=== PATIENT | female | born 1935 | race Caucasian/White ===

== ENCOUNTER → 2016-10-04 | Outpatient (CLI) | payer MEDICARE, OTHER ==
[2016-10-04 12:22] LABS: Blood Urea Nitrogen 35 mg/dL (7-17); Non-African American GFR(MDRD) 50 (>60 ml/min/1.73 sqM)
--- NOTE | 2016-10-04 13:31 | CT ---
EXAMINATION TYPE: CT chest w con DATE OF EXAM: 10/04/2016 1:19 PM COMPARISON: 03/30/2016 and 05/24/2015 HISTORY: Previous abnormal exam CT DLP: 1062 mGycm Automated exposure control for dose reduction was used. CONTRAST: CT scan of the chest is performed with IV Contrast, patient injected with 100 ml mL of Omnipaque 300. FINDINGS: LUNGS: Nodular density within the left upper lobe posteriorly is smaller in size and currently measur es 6 mm versus previous measurement of 9 mm. Focal Groundglass opacity left upper lobe is unchanged f rom 2.5 cm versus 2.5 cm previously however significantly improved from 05/24/2015. Spiculated density right lower lobe is essentially unchanged and measures 2.5 x 1.2 cm. This has progressed significantl y since the study from 05/24/2015. The lungs are otherwise clear. Hyperinflation compatible with COPD. Upper lobe emphysematous changes noted. MEDIASTINUM: There is left hilar adenopathy measuring 2 cm. Additional enlarged lymph node is identif ied within the AP window measures 1.4 cm. Direct comparison with prior study is difficult given lack of contrast on the previous examination. No pericardial effusion is seen. Thoracic aorta is of jeramy l caliber. The heart is not enlarged. UPPER ABDOMEN: There is evidence of cholelithiasis. Simple cysts within the left hepatic lobe are unc hanged. Thickening of the left adrenal gland persists. Small hiatal hernia is incidentally noted. Sco liosis of the thoracic spine with associated degenerative changes. OTHER: No additional significant abnormality is seen. IMPRESSION: 1. Spiculated mass right lower lobe has enlarged significantly when compared to 05/24/2015 however cherry ins stable when compared to 03/30/2016. 2. Left upper lobe mass has improved significantly when compared to 05/24/2015 however appears as an ar ea of focal groundglass infiltrate and is unchanged relative 03/30/2016. 3. Left apical nodule is slightly smaller in size. 4. Left hilar and AP window adenopathy.
== END | disposition home or self-care (01) ==
LOC: RADCTMAIN 11:43
PROVIDERS: ATTEND Internal Medicine
DX: R91.8 Other nonspecific abnormal finding of lung field (principal); R59.0 Localized enlarged lymph nodes
CPT/HCPCS: 82565; 84520; 71260; 36415; Q9967

== ENCOUNTER 2017-02-19 04:35 | Emergency (ER) | payer MEDICARE, OTHER ==
[2017-02-19] MEDS ORDERED: IPRATROPIUM-ALBUTEROL 3 ML NEB INHALATION STA (04:57)
[2017-02-19] MEDS ORDERED: predniSONE 20 MG TAB PO STA (04:57)
--- NOTE | 2017-02-19 05:03 | ED ---
SOB HPI - General Source: patient Mode of arrival: EMS Limitations: no limitations - History of Present Illness MD Complaint: shortness of breath, cough -: hour(s) Severity: moderate Consistency: constant Improves With: nothing Worsens With: nothing Known History Of: COPD Context: recent URI Associated Symptoms: denies other symptoms <Riley Zuniga - Last Filed: 02/19/17 04:57> <Rory Rodriguez - Last Filed: 02/19/17 09:10> - General Chief Complaint: Shortness of Breath Stated Complaint: SOB Time Seen by Provider: 02/19/17 04:37 - History of Present Illness Initial Comments: This patient is an 81-year-old woman who presents to be evaluated for feeling shortness of breath. She states that she had gone to bed with a little bit of a scratchy feeling in the throat. She woke up between 1 and 2:00 this morning with a feeling like she was congested in the nose and sinuses. She then also started feeling like her lungs were tight. She was having a little bit of wheezing. She states that she has a little bit of a nonproductive cough but that she always has a cough. Patient denies any pain or swelling in the legs the remainder the review of systems is negative. (Riley Zuniga) - Related Data Home Medications Medication Instructions Recorded Confirmed Albuterol Sulfate [Proair Hfa] 2 puff INHALATION RT-BID 03/29/16 02/19/17 Aspirin EC [Ecotrin Low Dose] 81 mg PO AC-LUNCH 03/29/16 02/19/17 Prasanna/D3/Mag11/Zinc/Spinner Continuous/Reece/Bor 1 tab PO AC-LUNCH 03/29/16 02/19/17 [Caltrate 600+D Plus Tablet] Magnesium Oxide [Mag-Ox] 400 mg PO AC-LUNCH 03/29/16 02/19/17 Multivitamins, Thera [Multivitamin 1 tab PO DAILY 03/29/16 02/19/17 (formulary)] Fish Oil/Dha/Epa [Fish Oil 1,200 1 cap PO DAILY 04/12/16 02/19/17 mg Fish Oil] Carvedilol [Coreg] 6.25 mg PO BID 02/19/17 02/19/17 Cetirizine HCl [Zyrtec] 10 mg PO DAILY 02/19/17 02/19/17 Ipratropium-Albuterol Nebulize 3 ml INHALATION RT-QID PRN 02/19/17 02/19/17 [Duoneb 0.5 mg-3 mg/3 ml Soln] Lisinopril [Zestril] 10 mg PO BID 02/19/17 02/19/17 Previous Rx's Medication Instructions Recorded Budesonide-Formot 160-4.5 Mcg 2 puff INHALATION RT-BID #1 inh 04/02/16 [Symbicort 160-4.5 Mcg Inhaler] Cephalexin [Keflex] 500 mg PO QID #40 cap 02/19/17 Allergies Allergy/AdvReac Type Severity Reaction Status Date / Time amoxicillin Allergy Nausea & Verified 02/19/17 08:07 Vomiting celecoxib [From Celebrex] Allergy Rash/Hives Verified 02/19/17 08:07 codeine Allergy Nausea & Verified 02/19/17 08:07 Vomiting Review of Systems ROS Other: All systems not noted in ROS Statement are negative. Constitutional: Denies: fever, chills ENT: Reports: throat pain, congestion. Denies: ear pain, epistaxis Respiratory: Reports: cough, dyspnea, wheezes. Denies: hemoptysis, stridor Cardiovascular: Denies: chest pain, palpitations, dyspnea on exertion, orthopnea , edema, syncope Gastrointestinal: Denies: abdominal pain, vomiting Genitourinary: Denies: dysuria, hematuria Musculoskeletal: Denies: back pain Skin: Denies: rash Neurological: Denies: headache, weakness, numbness <Riley Zuniga - Last Filed: 02/19/17 04:57> ROS Other: All systems not noted in ROS Statement are negative. <Rory Rodriguez - Last Filed: 02/19/17 09:10> ROS Statement: Those systems with pertinent positive or pertinent negative responses have been documented in the HPI. Past Medical History Past Medical History: COPD, Hypertension, Myocardial Infarction (ME), Pneumonia Additional Past Medical History / Comment(s): pneumonia x2 once was bacterial and pt was very ill- had to go to rehab after, was told she had a ME by her physician but unknown when, colon polyps, occasional rectal bleed, hemorrhoids, diverticulitis, thyroid nodules being monitored, generalized arthritis, occasional back pain, scoliosis, stress incontinence, fairly recent kidney infection, pt is very sensitive to narcotics and certain antibiotics cause her alot of GI problems. Last Myocardial Infarction Date:: unkn History of Any Multi-Drug Resistant Organisms: None Reported Past Surgical History: Joint Replacement Additional Past Surgical History / Comment(s): 2014 total rt knee arthroplasty, bilateral cataract removal, trabeculoplasty-laser sx for glaucoma bilaterally, D &C, Past Anesthesia/Blood Transfusion Reactions: No Reported Reaction Past Psychological History: No Psychological Hx Reported Additional Psychological History / Comment(s): Pt resides alone. She has a walker which she uses if she has items to transport-sets them on the seat. She is independent. She drives. Smoking Status: Former smoker Past Alcohol Use History: Rare Additional Past Alcohol Use History / Comment(s): Pt states she smoked from 1963 -1993 less than a ppd. Past Drug Use History: None Reported - Past Family History Father History Unknown: Yes Additional Family Medical History / Comment(s): Father when pt was 3 yrs old in a MVA. Mother Family Medical History: Renal Disease Additional Family Medical History / Comment(s): Mother had severe phlebitis. She when pt was 16 yrs. old from kidney failure. <Riley Zuniga - Last Filed: 02/19/17 04:57> General Exam Limitations: no limitations General appearance: alert, in no apparent distress Head exam: Present: atraumatic, normocephalic Eye exam: Present: normal appearance. Absent: scleral icterus, conjunctival injection Neck exam: Present: normal inspection Respiratory exam: Present: respiratory distress (Mild tachypnea), wheezes. Absent: rales, rhonchi, stridor, accessory muscle use, decreased breath sounds, prolonged expiratory Cardiovascular Exam: Present: regular rate, normal rhythm, normal heart sounds. Absent: systolic murmur, diastolic murmur, rubs, gallop GI/Abdominal exam: Present: soft. Absent: distended, tenderness, guarding, rebound Extremities exam: Present: normal inspection, normal capillary refill. Absent: pedal edema, calf tenderness Back exam: Present: normal inspection. Absent: CVA tenderness (R), CVA tenderness (L) Neurological exam: Present: alert Skin exam: Present: warm, dry, intact, normal color. Absent: rash <Riley Zuniga - Last Filed: 02/19/17 04:57> Medical Decision Making - EKG Data -: EKG Interpreted by Pa EKG shows normal: sinus rhythm, intervals (QRS duration is mildly prolonged at 124 ms, the other intervals are normal), QRS complexes (Nonspecific intraventricular block) Rate: normal (Rate 78 bpm) Interpretation: other (Possible old anteroseptal infarct.) <NadiaRiley - Last Filed: 02/19/17 04:57> - Lab Data Result diagrams: 02/19/17 04:45 02/19/17 04:45 - Radiology Data Radiology results: report reviewed (CT of the chest shows no evidence of pulmonary embolism. Chronic emphysematous changes and mild cardiomegaly.Mild to moderate interstitial edema. Persistent suspicious left hilar mass or adenopathy. Persistent increasing right lower lobe speculated nodule.), image reviewed (Two-view chest x-ray shows patchy densities bilateral lower lobes.) <Rory Rodriguez - Last Filed: 02/19/17 09:10> - Medical Decision Making Patient reevaluated and resting comfortably in bed. Patient states she is breathing much better and requests discharge home. Patient denies ever having discomfort in her chest and states the tightness was only the description of her breathing. Patient does not want to be admitted. Patient and family are updated on results including concerns regarding computed tomography scan. They state they do have a follow-up appointment with Dr. Davis next month however will attempt to have this sooner. They are advised of the importance of having this follow-up sooner. Also advised to follow-up with primary care physician in the next couple of days. Patient does request antibiotics for sinus congestion and sore throat. Specifically Keflex. Lungs are clear to auscultation. No pedal edema. (Rory Rodriguez) - Lab Data Lab Results 02/19/17 02/19/17 02/19/17 Range/Units 04:45 04:45 04:45 WBC 8.9 (3.8-10.6) k/uL RBC 4.40 (3.80-5.40) m/uL Hgb 14.0 (11.4-16.0) gm/dL Hct 42.7 (34.0-46.0) % MCV 97.1 (80.0-100.0) fL MCH 31.9 (25.0-35.0) pg MCHC 32.8 (31.0-37.0) g/dL RDW 13.6 (11.5-15.5) % Plt Count 198 (150-450) k/uL Neutrophils % 75 % Lymphocytes % 15 % Monocytes % 5 % Eosinophils % 2 % Basophils % 1 % Neutrophils # 6.7 (1.3-7.7) k/uL Lymphocytes # 1.3 (1.0-4.8) k/uL Monocytes # 0.5 (0-1.0) k/uL Eosinophils # 0.2 (0-0.7) k/uL Basophils # 0.1 (0-0.2) k/uL PT 10.0 (9.0-12.0) sec INR 1.0 (<1.1) APTT 23.9 (22.0-30.0) sec D-Dimer 1.99 H (<0.60) mg/L FEU Sodium 145 (137-145) mmol/L Potassium 4.1 (3.5-5.1) mmol/L Chloride 105 (98-107) mmol/L Carbon Dioxide 28 (22-30) mmol/L Anion Gap 12 mmol/L BUN 28 H (7-17) mg/dL Creatinine 1.02 (0.52-1.04) mg/dL Est GFR (MDRD) Af Amer >60 (>60 ml/min/1.73 sqM) Est GFR (MDRD) Non-Af 52 (>60 ml/min/1.73 sqM) Glucose 117 H (74-99) mg/dL Calcium 9.6 (8.4-10.2) mg/dL Total Bilirubin 0.7 (0.2-1.3) mg/dL AST 25 (14-36) U/L ALT 28 (9-52) U/L Alkaline Phosphatase 106 (38-126) U/L Troponin I (0.000-0.034) ng/mL NT-Pro-B Natriuret Pep pg/mL Total Protein 7.0 (6.3-8.2) g/dL Albumin 4.3 (3.5-5.0) g/dL Group A Strep Rapid (Negative) 02/19/17 02/19/17 02/19/17 Range/Units 04:45 04:45 06:30 WBC (3.8-10.6) k/uL RBC (3.80-5.40) m/uL Hgb (11.4-16.0) gm/dL Hct (34.0-46.0) % MCV (80.0-100.0) fL MCH (25.0-35.0) pg MCHC (31.0-37.0) g/dL RDW (11.5-15.5) % Plt Count (150-450) k/uL Neutrophils % % Lymphocytes % % Monocytes % % Eosinophils % % Basophils % % Neutrophils # (1.3-7.7) k/uL Lymphocytes # (1.0-4.8) k/uL Monocytes # (0-1.0) k/uL Eosinophils # (0-0.7) k/uL Basophils # (0-0.2) k/uL PT (9.0-12.0) sec INR (<1.1) APTT (22.0-30.0) sec D-Dimer (<0.60) mg/L FEU Sodium (137-145) mmol/L Potassium (3.5-5.1) mmol/L Chloride (98-107) mmol/L Carbon Dioxide (22-30) mmol/L Anion Gap mmol/L BUN (7-17) mg/dL Creatinine (0.52-1.04) mg/dL Est GFR (MDRD) Af Amer (>60 ml/min/1.73 sqM) Est GFR (MDRD) Non-Af (>60 ml/min/1.73 sqM) Glucose (74-99) mg/dL Calcium (8.4-10.2) mg/dL Total Bilirubin (0.2-1.3) mg/dL AST (14-36) U/L ALT (9-52) U/L Alkaline Phosphatase (38-126) U/L Troponin I <0.012 (0.000-0.034) ng/mL NT-Pro-B Natriuret Pep 812 pg/mL Total Protein (6.3-8.2) g/dL Albumin (3.5-5.0) g/dL Group A Strep Rapid Negative (Negative) Disposition <Riley Zuniga - Last Filed: 02/19/17 04:57> <Rory Rodriguez - Last Filed: 02/19/17 09:10> Clinical Impression: COPD exacerbation Disposition: HOME SELF-CARE Condition: Stable Instructions: COPD (Chronic Obstructive Pulmonary Disease) (ED), Sinusitis (ED) Additional Instructions: Please follow-up with your primary care physician and Dr. Boss this week. Please have Dr. Boss review computed tomography scan done today. Return for difficulty breathing, chest discomfort, worsening symptoms or any other concerns or fevers. Prescriptions: Cephalexin [Keflex] 500 mg PO QID #40 cap Referrals: Myra Arreaga MD [Primary Care Provider] - 1-2 days Yanique Boss MD [STAFF PHYSICIAN] - 1-2 days
[2017-02-19 05:15] LABS: Basophils # (A) 0.1 k/uL (0-0.2); Basophils % (A) 1 %; CHCM 33.1; Eosinophils # (A) 0.2 k/uL (0-0.7); Eosinophils % (A) 2 %; HCT 42.7 % (34.0-46.0); Luc % (Auto) 2; Lymphocytes # (A) 1.3 k/uL (1.0-4.8); Lymphocytes % (A) 15 %; MCH 31.9 pg (25.0-35.0); MCHC 32.8 g/dL (31.0-37.0); MCV 97.1 fL (80.0-100.0); Mean Platelet Volume 6.7; Monocytes # (A) 0.5 k/uL (0-1.0); Monocytes % (A) 5 %; Neutrophils # (A) 6.7 k/uL (1.3-7.7); Neutrophils % (A) 75 %; RDW 13.6 % (11.5-15.5); WBC 8.9 k/uL (3.8-10.6); WBC (Perox) 9.03
[2017-02-19 05:33] LABS: ALT 28 U/L (9-52); AST 25 U/L (14-36); Alkaline Phosphatase 106 U/L (38-126); Anion Gap 12 mmol/L; Blood Urea Nitrogen 28 mg/dL (7-17); Calcium 9.6 mg/dL (8.4-10.2); Carbon Dioxide 28 mmol/L (22-30); Chloride 105 mmol/L (98-107); Glucose 117 mg/dL (74-99); Non-African American GFR(MDRD) 52 (>60 ml/min/1.73 sqM); Potassium 4.1 mmol/L (3.5-5.1); Sodium 145 mmol/L (137-145); Total Bilirubin 0.7 mg/dL (0.2-1.3)
[2017-02-19 05:36] LABS: Partial Thromboplastin Time 23.9 sec (22.0-30.0)
--- NOTE | 2017-02-19 06:22 | XR ---
PROCEDURE: FILM CXR 2 VIEWS HISTORY: 81-year-old female with difficulty breathing. COMPARISON: Chest radiograph 04/12/2016 TECHNIQUE: Frontal and lateral views of the chest were obtained. FINDINGS: Evaluation is limited by motion degradation. Cardiomediastinal silhouette is stable. Patchy densities in the bilateral lower lobes, may be due to motion artifact or pneumonia in the appropriate clinical setting. No evidence of pleural effusion. Bones are osteopenic. IMPRESSION: Patchy densities in the bilateral lower lobes, may be due to motion artifact or pneumonia in the appropriate clinical setting.
[2017-02-19] MEDS ORDERED: RX INFO: IV CONTRAST WAS GIVEN 1 EACH MISC MISCELLANE PRN (06:41)
[2017-02-19 07:35] VITALS: RESP 18
--- NOTE | 2017-02-19 08:03 | CT ---
EXAMINATION TYPE: CT chest angio for PE DATE OF EXAM: 02/19/2017 COMPARISON: CT chest October 04, 2016. Older CT exams back to May 24, 2015. HISTORY: SOB and chest pain, elevated d dimer CT DLP: 517 mGycm. Automated Exposure Control for Dose Reduction was Utilized. CONTRAST: CTA scan of the thorax is performed with IV Contrast, patient injected with 65 mL of Visipaque 320, p ulmonary embolism protocol. MIP Images are created on CT scanner and reviewed. FINDINGS: LUNGS: Moderate underlying emphysematous change is present bilaterally. There is mild biapical scarri ng. There is persistent scarlike opacity posterior left upper lobe measuring 13 x 6 mm on axial image 36 fairly stable from prior studies back through 2014 presumed benign. There is increasing reticulat ion on current study suggesting new mild edema. Inferior left upper lobe scarlike opacity on axial im age 67 measures approximately 2.7 x 1.7 cm on current study slightly more prominent versus most recen t study, acute infectious process at this level cannot be excluded. There is increasing left hilar ma sslike consolidation difficult to accurately measure due to close proximity to left pulmonary artery, this currently measures 2.2 x 1.8 cm on axial image 57 and could reflect left hilar adenopathy. Romel tional left infrahilar masslike consolidation is suspicious measuring 1.6 x 1.1 cm on axial image 70. There is dependent atelectasis in the left lung base. There is additional linear scarring and/or ate lectasis in the left lung base redemonstrated. There is continued progression in size in spiculated nodule right lower lobe measuring 2.7 x 1.8 cm o n axial image 92. There is some subcentimeter nodular scarring medially in the right middle lobe near diaphragm stable. No large pleural effusion or pneumothorax is seen bilaterally. MEDIASTINUM: There is satisfactory enhancement of the pulmonary artery and its branches, there is no CT evidence for pulmonary embolism. There are no additional greater than 1 cm hilar or mediastinal l ymph nodes. There are prominent subcentimeter prevascular, AP window, right hilar, and subcarinal lym ph nodes Heart size is mildly enlarged with mild left ventricular dilatation. No significant pericard ial effusion is seen. There is moderate atherosclerotic change in ectatic thoracic aorta. There is pr obable greater than 1 cm hypodense thyroid nodule lower pole level right thyroid seen best coronal im age 52. Small hiatal hernia is redemonstrated. OTHER: A 5 cm low dense lesion probable simple hepatic cyst lateral segment left hepatic lobe is stab le. There is additional subcentimeter hypodense lesion near this on axial image 110 that is stable fr om prior exams. Underlying dextroconvex scoliosis is redemonstrated. IMPRESSION: 1. No CT evidence for pulmonary embolism. 2. Background of moderate chronic emphysematous change and mild cardiomegaly with new mild to moderat e interstitial edema, consider CHF exacerbation, clinical correlation advised. 3. Persistent suspicious left hilar mass or adenopathy. Persistent increasing right lower lobe spicul ated nodule. Malignancy needs to BE excluded. Consider PET/CT or bronchoscopy follow-up.
[2017-02-19 10:21] VITALS: BP 133/60; PULSE 85; TEMP 97.4
== END 2017-02-19 10:23 | disposition home or self-care (01) ==
LOC: EC 04:35
DX: J44.1 Chronic obstructive pulmonary disease with (acute) exacerbation (principal); I10 Essential (primary) hypertension; I25.2 Old myocardial infarction; Z87.01 Personal history of pneumonia (recurrent); Z87.891 Personal history of nicotine dependence; Z79.82 Long term (current) use of aspirin; Z79.899 Other long term (current) drug therapy; Z88.0 Allergy status to penicillin; Z88.5 Allergy status to narcotic agent; Z88.6 Allergy status to analgesic agent
CPT/HCPCS: 99285; 36415; 94640; 93005; 85379; 83880; 80053; 84484; 85025; 85610; 85730; 87081; 87430; 71020; 71275; Q9967; J7512

== ENCOUNTER → 2017-03-02 | Outpatient (CLI) | payer MEDICARE, OTHER ==
--- NOTE | 2017-03-03 10:52 | PE ---
EXAMINATION TYPE: PET CT fusion skull to thigh DATE OF EXAM: 03/02/2017 COMPARISON: Chest CT 02/19/2017 Prior PET/CT: None HISTORY: Lung mass TECHNIQUE: Following the intravenous administration of 14.11 mCi of F-18 FDG, whole body images are performed from the skull base to the midthigh. Images are reviewed on the computer in the coronal, a xial, and sagittal planes. Reconstructed rotating images are created on independent workstation and reviewed on the computer. A localization and attenuation correction CT is performed in conjunction with the PET scan. DLP: 397.1 mGycm SCAN: Initial Blood glucose: 88 mg/dL Average Mediastinum SUV: 2.13 Average Liver SUV: 2.06 FINDINGS: NECK: No abnormal uptake. THORAX: There is hyperintensity within the left hilar region with an SUV value of 10.95. A subtle lef t infrahilar area of uptake measures 2.67. PET image 97 there is mild uptake in the periphery of the right lower lung base measuring 2.37. Image 113 ABDOMEN: No abnormal uptake PELVIS: No abnormal uptake. There is some slight uptake within the gluteal muscles. OSSEOUS STRUCTURES: No abnormal uptake LOCALIZATION CT: The ascending thoracic aorta at the level the main pulmonary artery is 3.8 cm. The m ain pulmonary artery the bifurcation is 2.5 cm. There is soft tissue fullness adjacent to the left ma in pulmonary artery at the level of the abnormal uptake.. The more inferior infrahilar uptake region appears more normal. There is density on the lung windows in the periphery of the right lung base ant eriorly of abnormal uptake. Some pneumonitis changes within the periphery of the left midlung this ar ea has a normal SUV value less than 1. Large cysts in the liver ". 0.9 cm hypodensities in the graphics edit technician ior inferior left kidney. COMPARISON: Findings at the localization and PET/CT correspond to findings on the chest CTA. IMPRESSION: 1. Increased uptake within the soft tissue densities in the left hilar and infrahilar regions as well as the density within the right lung base. These are in the range of neoplastic processes. Correlate for primary or metastatic lesions.
== END | disposition home or self-care (01) ==
LOC: RADPETMAIN 07:45
PROVIDERS: ATTEND Internal Medicine
DX: R94.2 Abnormal results of pulmonary function studies (principal)
CPT/HCPCS: 78815; A9552

== ENCOUNTER 2017-03-13 11:00 | Day surgery (SDC) | payer MEDICARE, OTHER ==
[2017-03-08 11:15] VITALS: BMI 28.3
[~2017-03-13 11:00] MED LIST: ALBUTEROL NEB (CONC) 2.5 MG/0.5 ML INHALATION ONE; DEXAMETHASONE SOD PHOSPHATE 10 MG/ML 1 ML VIAL IV ONE; HYDROmorphone 1 MG/ML 1 ML SYRINGE IVP PRN; LACTATED RINGERS 1,000 ML IV ONE; LIDOCAINE 1% 20 ML VIAL (10MG/ML) FOR IV START INTRADERMA PRN; LIDOCAINE 2% (PF) 20 MG/ML 10ML INHALATION ONE; MIDAZOLAM 2 MG/2 ML VIAL IV PRN; ONDANSETRON 4 MG/2 ML VIAL IVP ONE; Pre Op ABX Message 1 EACH MISC MISCELLANE ONE; SCOPOLAMINE 1.5MG/72HR PATCH TRANSDERM ONE
--- NOTE | 2017-03-13 12:51 | CT ---
EXAMINATION TYPE: CT Chest wo con Veran Protocol DATE OF EXAM: 03/13/2017 COMPARISON: NONE HISTORY: Veran chest for navagational bronchoscopy CT DLP: [address] of the chest was performed utilizing Veran chest for navagational bronch. The lack of contrast limits evaluation of the vascular, mediastinal and parenchymal structures includ ing the upper abdomen. LUNGS: There is a spiculated mass at the right lower lobe measuring 3.0 x 1.8 cm. There is additional groundglass area of attenuation within the left lower lobe measuring 2.1 cm in greatest dimension. P ost inflammatory changes left upper lobe posteriorly. There is hyperinflation compatible with COPD. U pper lobe emphysematous changes noted. MEDIASTINUM/BEN: Atheromatous and ectatic change of the thoracic aorta without aneurysm. The heart i s not enlarged. No evidence for mediastinal mass. No lymph nodes greater than 1cm. UPPER ABDOMEN: Large hepatic cyst left hepatic lobe. OTHER: Scoliotic curvature with degenerative change thoracic spine. IMPRESSION: 1. Right lower lobe mass felt to reflect malignancy until proven otherwise. 2. Scattered areas of groundglass density may be inflammatory\postinflammatory in nature.
[2017-03-13] MEDS ORDERED: ePHEDrine 50 MG/ML 1 ML AMP ONE (13:35)
[2017-03-13] MEDS ORDERED: ROCURONIUM BROMIDE 10 MG/ML 10 ML VIAL IV ONE (13:35)
[2017-03-13] MEDS ORDERED: MIDAZOLAM 2 MG/2 ML VIAL ONE (13:35)
[2017-03-13] MEDS ORDERED: SUCCINYLCHOLINE CHLORIDE 100 MG/5 ML SYR IV ONE (13:35)
[2017-03-13] MEDS ORDERED: PROPOFOL 10 MG/ML 20 ML VIAL IV ONE (13:35)
[2017-03-13] MEDS ORDERED: LIDOCAINE 1% INJ 10MG/ML (20 ML MDV) ONE (13:35)
[2017-03-13] MEDS ORDERED: NEOSTIGMINE 1 MG/ML 10 ML VIAL ONE (13:35)
[2017-03-13] MEDS ORDERED: GLYCOPYRROLATE 0.2 MG/ML 2 ML VIAL ONE (13:35)
[2017-03-13] MEDS ORDERED: LACTATED RINGERS 1,000 ML IV ONE (14:15)
--- NOTE | 2017-03-13 14:21 | P.PCN ---
Date of Procedure: 03/13/17 Preoperative Diagnosis: Right lower lobe mass Postoperative Diagnosis: Right lower lobe mass Procedure(s) Performed: Bronchoscopy with navigation guidance, transbronchial biopsy, transbronchial needle aspirate, transbronchial brushings Implants: Anesthesia: TAYLERA Surgeon: Darell Rodríguez Estimated Blood Loss (ml): 0 Pathology: other Condition: stable Disposition: same day Indications for Procedure: Operative Findings: This is an 81-year-old female patient with a right lower lobe mass, coming in for a medication bronchoscopy and biopsy. Preoperatively, a low-dose same-day computed tomography scan was done for planning purposes. The patient had the appropriate V pads applied to the chest. The CAT of the chest was uploaded to our planning station and the target lesion of interest was identified and it was marked and the navigational planning was done and was exported into a ESBL and then uploaded into the main system. Following that the patient was brought into the operating room and the patient was intubated and placed on a mechanical ventilator and the induction and intubation process was done by anesthesia/BENEFIT AUTHORIZER. Following that, and after was tested orotracheal tube and the flexible bronchoscope was inserted to the orotracheal tube and airway section was done. Instructed airways occluded distal trachea, back and mainstem bronchi , right upper lobe bronchus regular lobe bronchus right lower lobe bronchus left upper lobe bronchus and left lower lobe bronchus along with history segments and subsegments. All of these airways were patent and within normal limits. Following that the bronchoscope was brought into the main abimael where the the appropriate calibration was done with the navigational system. Another calibration was done at the level of the secondary abimael and the right upper lobe. Following that, using the navigational 5 through system, the bronchoscope was directed to the right lower lobe anterior segment and under navigational guidance transbuccal baths of the right lower lobe mass was done. Multiple chest bronchial biopsies were obtained without any complications the total amount of bleeding was less than 5 ML's. Following that, and the bronchial brushings of the right lower lobe mass was done utilizing navigational guidance. At that of the procedure transbronchial needle aspirate was done using a 22-gauge histology needle again using the same navigational guidance. No bedside complications. Bronchoscope was removed. The patient was left to anesthesia for weaning and extubation. The patient be transferred recovery room once awake and a chest x-ray will be done to rule out any pneumothorax. The patient will be discharged home if she remains stable. Description of Procedure:
--- NOTE | 2017-03-13 15:46 | XR ---
EXAMINATION TYPE: XR chest 1V portable DATE OF EXAM: 03/13/2017 HISTORY: rule out pneumothorax. REFERENCE: Previous study dated 02/19/2017. FINDINGS: There is a marked dextroscoliosis. The heart is mildly enlarged. There is worsening right b asilar opacity likely representing combination of pleural fluid and consolidation. The left lung appe ars clear. I do not see evidence of pneumothorax. IMPRESSION: 1. SEVERE SCOLIOSIS. 2. MILD CARDIOMEGALY. 3. WORSENING RIGHT BASILAR OPACITY, LIKELY A COMBINATION OF FLUID AND AIRSPACE DISEASE.
[2017-03-13] MEDS ORDERED: ALBUTEROL NEBULIZED 2.5 MG/3 ML INHALATION STA (15:50)
[2017-03-13] MEDS ORDERED: IPRATROPIUM-ALBUTEROL 3 ML NEB INHALATION PRN (17:47)
[2017-03-13] MEDS: LACTATED RINGERS 1,000 ML IV SCH (19:00)
[2017-03-13] MEDS ORDERED: SYMBICORT 160-4.5 MCG INHALER INHALATION SCH (20:00)
[2017-03-13] MEDS: LISINOPRIL 10 MG TAB PO SCH (20:31)
[2017-03-13] MEDS: CARVEDILOL 6.25 MG TAB PO SCH (20:31)
[2017-03-13] MEDS: ALBUTEROL NEBULIZED 2.5 MG/3 ML INHALATION SCH (20:42)
[2017-03-13] MEDS ORDERED: MONTELUKAST 10 MG TAB PO SCH (21:00)
[2017-03-14] MEDS: LACTATED RINGERS 1,000 ML IV SCH (06:37)
--- NOTE | 2017-03-14 07:28 | XR ---
EXAMINATION TYPE: XR chest 2V DATE OF EXAM: 03/14/2017 COMPARISON: 03/13/2017 INDICATION: Post bronchoscopy, shortness of breath TECHNIQUE: Frontal and lateral views of the chest are obtained. FINDINGS: The heart size is normal. The pulmonary vasculature is normal. There is mild infiltrate at the right base. This has improved. Scoliosis within the thoracic spine. IMPRESSION: 1. Improving right lower lobe infiltrate. 2. No pneumothorax
[2017-03-14] MEDS: ALBUTEROL NEBULIZED 2.5 MG/3 ML INHALATION SCH (08:01)
[2017-03-14] MEDS: CARVEDILOL 6.25 MG TAB PO SCH (08:31)
[2017-03-14] MEDS: LISINOPRIL 10 MG TAB PO SCH (08:31)
[2017-03-14 08:38] VITALS: BP 142/73; PULSE 67; RESP 18; TEMP 97.5
[2017-03-14 08:50] LABS: Basophils % (A) 0 %; CH 31.7; Eosinophils % (A) 0 %; HCT 35.4 % (34.0-46.0); HDW 2.26; HGB 11.7 gm/dL (11.4-16.0); Luc # (Auto) 0.05; Luc % (Auto) 1; Lymphocytes # (A) 0.9 k/uL (1.0-4.8); Lymphocytes % (A) 12 %; MCH 31.7 pg (25.0-35.0); MCHC 32.9 g/dL (31.0-37.0); MCV 96.4 fL (80.0-100.0); Mean Platelet Volume 8.7; Monocytes # (A) 0.2 k/uL (0-1.0); Monocytes % (A) 4 %; Neutrophils # (A) 5.8 k/uL (1.3-7.7); Neutrophils % (A) 83 %; RBC 3.67 m/uL (3.80-5.40); RDW 13.4 % (11.5-15.5)
[2017-03-14] MEDS ORDERED: LORATADINE 10 MG TAB PO SCH (09:00)
[2017-03-14 09:06] LABS: Anion Gap 10 mmol/L; Blood Urea Nitrogen 28 mg/dL (7-17); Calcium 9.1 mg/dL (8.4-10.2); Carbon Dioxide 26 mmol/L (22-30); Chloride 103 mmol/L (98-107); Glucose 163 mg/dL (74-99); Non-African American GFR(MDRD) 50 (>60 ml/min/1.73 sqM); Potassium 4.2 mmol/L (3.5-5.1); Sodium 139 mmol/L (137-145)
[2017-03-14] MEDS ORDERED: ACETAMINOPHEN TAB 500 MG TAB PO STA (10:03)
--- NOTE | 2017-03-14 10:21 | P.HPPUL ---
History of Present Illness H&P Date: 03/14/17 Chief Complaint: chest pain and hypoxemia this is a 80-year-old female followe up by Dr Boss for symptoms of COPD, and for a lung nodule. Patient used to see Dr. Chanel in the past for her COPD and for the lung nodule. During her last admission to the hospital on 03/30/2016, patient had multiple medical problems including COPD, atrial fibrillation and RVR, essential hypertension, coronary artery disease. Her CT of the chest in the hospital was suspicious for left lung nodule which was apparently present in 2014, the nodule was noted to be smaller, but there was still a concern about nodularity in the lungs, and we recommended a repeat CT of the chest in 6 months. Apparently patient had extensive workup in the past for her nodule in the left lung, she even underwent bronchoscopies and biopsies in [place], and all were nondiagnostic. In the meantime the patient was coping with her lung disease rather well. Remained on Symbicort, albuterol and Atrovent updrafts, and now she is on Zyrtec which seems to be working well for her nasal drip and cough. Her FEV1 was 41% consistent with severe COPD. Patient was in the office on 02/22/2017, she was recently seen in the ER with symptoms of cough, shortness of breath, and she was placed on antibiotics. However the CT of the chest that was done while in the ER showed increase in the size of the right lower lobe nodule which is above the right hemidiaphragm, and the chronic changes are basically about the same including the changes on the left lung and left midlung nodularity, also preaortic lymphadenopathy noted in the mediastinal area. Based on this, a PET scan was done on 03/03/2017 that showed increased uptake within the soft tissue density in the left hilar and infrahilar region and there was also mild uptake in the peripheral the right lung base measuring 2.3 SUV. There was essentially a suspicion for an underlying neoplastic process. At that point the recommendation was to do a litigation bronchoscopy and obtain a biopsy of the right lower lobe. I performed a navigation bronchoscopy yesterday and operating room under general anesthesia. Transbronchial biopsies, brushings and has bronchial needle aspirate of the right lower lobe lesion was done. The patient's overall procedure intraoperatively was non-complicated. Total amount of bleeding was less than 5 ML. The patient was weaned off and she was extubated. In the recovery room she was slow to wake up from sedation. She continued to be lethargic. She was also complaining of pain over the right posterior chest area under her shoulder blade. The pain was very much reproducible upon touching the area. However at times with deep breathing she was complaining of also of some pain. The chest x-ray showed some limited consolidation of the right lung base probably post bronchoscopy changes and postbiopsy changes. There was no evidence of pneumothorax. The patient typically uses 2-3 L of oxygen nasal cannula for COPD. However she did not have her portable oxygen with her. Her pulse ox was ranging between 88-92% and at times she was dropping and desaturating while on room air. Based on that, she was uncomfortable going home without oxygen lung that she did not have any portable tanks and she was still hurting and she was quite lethargic on the sedation. I made a decision to keep her under observation for 23 hours and discharge her first thing in the morning if her condition stabilizes. The patient had a follow-up chest x-ray on 03/14/2017 which is showing improvement in aeration of the right lung base. There is no evidence of pneumothorax . The patient remains on 2 L of oxygen nasal cannula. No other new complaints. Note that the patient has thoracic kyphoscoliosis and her posterior chest is asymmetrical and it's somewhat protruding and is possible that she had increased pressure while they down flat during the procedure and operating room. This could've also contributed to the skeletal pain that she is experiencing in the back. Blood work essentially negative. The biopsy results are not out yet. We'll continue to follow. For the most part she is doing better. She is requiring Tylenol for pain control. She'll be discharged home today. Review of Systems All systems: negative Constitutional: Denies chills, Denies fever Eyes: denies blurred vision, denies pain Ears, nose, mouth and throat: Denies headache, Denies sore throat Cardiovascular: Denies chest pain, Denies shortness of breath Respiratory: Denies cough Gastrointestinal: Denies abdominal pain, Denies diarrhea, Denies nausea, Denies vomiting Genitourinary: Denies dysuria, Denies hematuria Musculoskeletal: Denies myalgias Integumentary: Denies pruritus, Denies rash Neurological: Denies numbness, Denies weakness Psychiatric: Denies anxiety, Denies depression Endocrine: Denies fatigue, Denies weight change Past Medical History Past Medical History: COPD, Hypertension, Myocardial Infarction (LA), Osteoarthritis (OA), Pneumonia Additional Past Medical History / Comment(s): COPD and lung mass (RLL) , previous pneumonia x2 once was bacterial, hemorrhoids, diverticulosis/ diverticulitis, thyroid nodules, scoliosis, oxygen at night -2L, gallstone, hx ulcers, urinary leakage Last Myocardial Infarction Date:: unknown History of Any Multi-Drug Resistant Organisms: None Reported Past Surgical History: Breast Surgery, Joint Replacement Additional Past Surgical History / Comment(s): total rt knee arthroplasty, bilateral cataract removal,laser sx for glaucoma bilaterally, D&C, rt breast biopsy/lumpectomy, Past Anesthesia/Blood Transfusion Reactions: Motion Sickness Additional Past Anesthesia/Blood Transfusion Reaction / Comment(s): "Does not take much anesthesia" hard time waking up, Smoking Status: Former smoker - Past Family History Father History Unknown: Yes Additional Family Medical History / Comment(s): Father when pt was 3 yrs old in a MVA. Mother Family Medical History: Deep Vein Thrombosis (DVT) Additional Family Medical History / Comment(s): Mother had severe phlebitis. She when pt was 16 yrs. old from kidney failure. Daughter(s) Family Medical History: Cancer Medications and Allergies Home Medications Medication Instructions Recorded Confirmed Type Albuterol Sulfate [Proair Hfa] 2 puff INHALATION BID 03/29/16 03/13/17 History Aspirin EC [Ecotrin Low Dose] 81 mg PO AC-LUNCH 03/29/16 03/13/17 History Prasanna/D3/Mag11/Zinc/Sprayer Machine/Reece/Bor 1 tab PO AC-LUNCH 03/29/16 03/13/17 History [Caltrate 600+D Plus Tablet] Magnesium Oxide [Mag-Ox] 400 mg PO AC-LUNCH 03/29/16 03/13/17 History Multivitamins, Thera [Multivitamin 1 tab PO DAILY 03/29/16 03/13/17 History (formulary)] Fish Oil/Dha/Epa [Fish Oil 1,200 1 cap PO DAILY 04/12/16 03/13/17 History mg Fish Oil] Carvedilol [Coreg] 6.25 mg PO BID 02/19/17 03/13/17 History Cetirizine HCl [Zyrtec] 10 mg PO DAILY 02/19/17 03/13/17 History Ipratropium-Albuterol Nebulize 3 ml INHALATION QID PRN 02/19/17 03/13/17 History [Duoneb 0.5 mg-3 mg/3 ml Soln] Lisinopril [Zestril] 10 mg PO BID 02/19/17 03/13/17 History Budesonide-Formot 160-4.5 Mcg 2 puff INHALATION BID 03/08/17 03/13/17 History [Symbicort 160-4.5 Mcg Inhaler] Montelukast [Singulair] 10 mg PO HS 03/08/17 03/13/17 History Allergies Allergy/AdvReac Type Severity Reaction Status Date / Time amoxicillin Allergy Nausea & Verified 03/13/17 11:38 Vomiting celecoxib [From Celebrex] Allergy Rash/Hives Verified 03/13/17 11:38 codeine Allergy Nausea & Verified 03/13/17 11:38 Vomiting antibiotics AdvReac Severe Vomiting Uncoded 03/13/17 11:38 Physical Examination Vital signs: Vital Signs Temp Pulse Resp BP Pulse Ox 98.2 F 83 18 189/92 93 L 03/13/17 11:39 03/13/17 11:39 03/13/17 11:39 03/13/17 11:39 03/13/17 11:39 Vital Signs Comment(s): The patient appeared well nourished and normally developed. Vital signs as documented. Head exam is unremarkable. No scleral icterus or corneal arcus noted. Neck is without jugular venous distension, thyromegaly, or carotid bruits. Carotid upstrokes are brisk bilaterally. Lungs are diminished in the lung bases bilaterally. Few scattered external wheezes. Few crackles in lung base. The thoracic spine is kyphoscoliotic and asymmetrical upon inspection with some evidence of dextroscoliosis. Cardiac exam reveals the PMI to be normally sized and situated. Rhythm is regular. First and second heart sounds normal. No murmurs, rubs or gallops. Abdominal exam reveals normal bowel sounds , no masses, no organomegaly and no aortic enlargement. Extremities are nonedematous and both femoral and pedal pulses are normal. Results - Laboratory Findings CBC and BMP: 03/14/17 08:33 03/14/17 08:33 Abnormal lab findings: Abnormal Labs 03/14/17 03/14/17 08:33 08:33 RBC 3.67 L Lymphocytes # 0.9 L BUN 28 H Creatinine 1.06 H Glucose 163 H - Diagnostic Findings Chest x-ray: image reviewed Assessment and Plan Plan: Assessment 1 right lower lobe spiculated lesion , suspicious for malignancy. Status post navigation bronchoscopy with transbronchial biopsies and brushings and needle aspirate 2 post bronchoscopy chest wall pain. Could be related to her positioning intraoperatively as the patient has asymmetric chest related to Dextroscoliosis of the thoracic spine. In addition the biopsy itself could've caused some pleuritic chest pain on the right. Chest x-ray shows no evidence of any pneumothorax 2. There is some limited consolidation of the right lower lobe which is improving. Very unlikely that we are dealing with a pneumonia situation. 3 Dextroscoliosis of the thoracic spine 4 advanced COPD with an FEV1 of 40% of predicted 5. Hypertension 6 degenerative arthritis 7 urinary incontinence 8 diverticulosis/diverticulitis 9 paroxysmal atrial fibrillation current rhythm is sinus Plan Patient is stable for now. We'll arrange for her to go home with a portable oxygen at 2 L/m nasal cannula. 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 Resume outpatient bronchodilators. Tylenol for pain control. We'll follow. The patient is cleared to discharge as the patient is stable and the chest x-ray findings are stable also. We'll contact the patient once the results of the biopsies are established.
--- NOTE | 2017-03-14 10:27 | P.DS ---
Providers Date of admission: 03/13/2017 Expected date of discharge: 03/14/17 Attending physician: Darell Rodríguez Consults: none Primary care physician: Myra Arreaga [place] [facility] Course: This 81-year-old female patient had a specific related right lower lobe lesion for which she was brought into the hospital to undergo a navigational bronchoscopy under general anesthesia. The procedure was done without any significant intraoperative issues or complications. Postop, the patient was slow to recover from anesthesia. She continued to be sleepy for prolonged period of time and she claims that this is typical for her as she allegedly does not wake up from anesthesia quickly. She also experienced pain over the right posterior chest area behind her shoulder blades. I think this is a combination of her having scoliosis and having some excess pressure due to positioning and operating room. She also experienced some pleuritic chest discomfort which probably is related to the biopsy itself. In any rate, 2 chest x-rays were done on 03/13/2017 and 03/14/2017 and both showed no evidence of any pneumothorax. There was no collapsed lung. The med consolidation of the right lower lobe was seen postbiopsy and this was improving. The patient is on home O2 at 2 L. She did not have a portable oxygen tanks with her. Her pulse ox was ranging between 87-92% on room air. Based on that I kept her overnight and she remained stable. She was given Tylenol for pain control. Ultimately she continued to be stable and the patient was discharged on 2016 on oxygen at 2 L/m nasal cannula. She will resume her home respiratory medication. He'll take Tylenol for pain control. She'll follow-up with pulmonary in the office to discuss the results. Pertinent Studies: Chest x-ray on 03/13 and 03/14/2017 Procedures: Medication bronchoscopy, transbronchial biopsy, brushings, transbronchial needle aspirate Patient Condition at Discharge: Good Plan - Discharge Summary New Discharge Prescriptions: No Action Multivitamins, Thera [Multivitamin (formulary)] 1 tab PO DAILY Prasanna/D3/Mag11/Zinc/Nurse Tech/Reece/Bor [Caltrate 600+D Plus Tablet] 1 tab PO AC-LUNCH Aspirin EC [Ecotrin Low Dose] 81 mg PO AC-LUNCH Albuterol Sulfate [Proair Hfa] 2 puff INHALATION BID Magnesium Oxide [Mag-Ox] 400 mg PO AC-LUNCH Fish Oil/Dha/Epa [Fish Oil 1,200 mg Fish Oil] 1 cap PO DAILY Carvedilol [Coreg] 6.25 mg PO BID Cetirizine HCl [Zyrtec] 10 mg PO DAILY Ipratropium-Albuterol Nebulize [Duoneb 0.5 mg-3 mg/3 ml Soln] 3 ml INHALATION QID PRN PRN Reason: sob Lisinopril [Zestril] 10 mg PO BID Montelukast [Singulair] 10 mg PO HS Budesonide-Formot 160-4.5 Mcg [Symbicort 160-4.5 Mcg Inhaler] 2 puff INHALATION BID Discharge Medication List Albuterol Sulfate [Proair Hfa] 2 puff INHALATION BID 03/29/16 [History] Aspirin EC [Ecotrin Low Dose] 81 mg PO AC-LUNCH 03/29/16 [History] Prasanna/D3/Mag11/Zinc/Nurse Tech/Reece/Bor [Caltrate 600+D Plus Tablet] 1 tab PO AC-LUNCH [History] Magnesium Oxide [Mag-Ox] 400 mg PO AC-LUNCH 03/29/16 [History] Multivitamins, Thera [Multivitamin (formulary)] 1 tab PO DAILY 03/29/16 [History ] Fish Oil/Dha/Epa [Fish Oil 1,200 mg Fish Oil] 1 cap PO DAILY 04/12/16 [History] Carvedilol [Coreg] 6.25 mg PO BID 02/19/17 [History] Cetirizine HCl [Zyrtec] 10 mg PO DAILY 02/19/17 [History] Ipratropium-Albuterol Nebulize [Duoneb 0.5 mg-3 mg/3 ml Soln] 3 ml INHALATION QID PRN 02/19/17 [History] Lisinopril [Zestril] 10 mg PO BID 02/19/17 [History] Budesonide-Formot 160-4.5 Mcg [Symbicort 160-4.5 Mcg Inhaler] 2 puff INHALATION BID 03/08/17 [History] Montelukast [Singulair] 10 mg PO HS 03/08/17 [History] Follow up Appointment(s)/Referral(s): Darell Rodríguez MD [STAFF PHYSICIAN] - 03/26/17 9:00 am Yanique Boss MD [STAFF PHYSICIAN] - 1 Week Patient Instructions/Handouts: *Surgery [facility] - Bronchoscopy Discharge Instructions Activity/Diet/Wound Care/Special Instructions: Expect coughing up some bloody secretions. Patient will be contacted by office in 1 week to discuss results of biopsy. Patient can follow up in office in [address] Boss. Discharge Disposition: HOME SELF-CARE
[2017-03-14] MEDS ORDERED: MAGNESIUM OXIDE 400 MG TAB PO SCH (12:30)
[2017-03-14] MEDS ORDERED: CALCIUM CARB-VIT D 500MG-200UN 1 EACH TAB PO SCH (12:30)
== END 2017-03-14 12:03 | disposition home or self-care (01) ==
LOC: ORWHC2ENDO 11:00 → 3OBS 14:27 → ORWHC2ENDO 03-14 12:03
PROVIDERS: ATTEND Internal Medicine Critical Care Medicine
DX: C34.31 Malignant neoplasm of lower lobe, right bronchus or lung (principal); Z87.891 Personal history of nicotine dependence; I25.10 Atherosclerotic heart disease of native coronary artery without angina pectoris; I10 Essential (primary) hypertension; I25.2 Old myocardial infarction; M41.9 Scoliosis, unspecified; I51.7 Cardiomegaly; Z79.82 Long term (current) use of aspirin; Z79.51 Long term (current) use of inhaled steroids; Z79.899 Other long term (current) drug therapy; Z88.1 Allergy status to other antibiotic agents; Z88.5 Allergy status to narcotic agent; Z88.0 Allergy status to penicillin
CPT/HCPCS: 94640 ×2; 94760; 88104; 88305; 88173; 80048; 85025; 88342; 88341; 71010; 71020; 71250; 31629; 31625; 31623; 31627; J2250; J1100; J2710; J2405; J2001; J0330; J2704

== ENCOUNTER → 2017-04-23 | Outpatient (CLI) | payer MEDICARE, OTHER ==
--- NOTE | 2017-04-23 08:52 | US ---
EXAMINATION TYPE: US abdomen complete DATE OF EXAM: 04/23/2017 COMPARISON: PET CT March 02 2017 CLINICAL HISTORY: RUQ ABD PAIN. EXAM MEASUREMENTS: Liver Length: 11.6 cm Gallbladder Wall: 0.1 cm CBD: 0.3 cm Spleen: 6.7 cm Right Kidney: 9.2 X 3.0 X 2.9 cm Left Kidney: 8.9 x 3.8 x 3.6 cm Pancreas: Tail obscured by overlying bowel gas Liver: 4.7 x 4.0 x 4 cm, appears vascular left lobe, 1.1 x 0.6 x 1.3 cm well defined Gallbladder: stone Evidence for sonographic Torre's sign: No CBD: wnl Spleen: wnl Right Kidney: wnl portions seen wnl Left Kidney: wnl small cortical cyst 0.6 x 1.1 x 0.7 cm lower pole, Upper IVC: wnl Abd Aorta: wnl The liver is homogenous. In the left hepatic lobe lateral aspect there is vascular heterogeneous lob ulated hypoechoic probable solid lesion that correlates with nonhypermetabolic lesion on PET/CT. The intrahepatic portion of the IVC and proximal abdominal aorta are within normal limits. There is no e vidence of cholelithiasis. Common bile duct is unremarkable. The visualized portions of the pancrea s are homogenous. The spleen is unremarkable. Kidneys are symmetric and free of hydronephrosis. Sub centimeter possible hemorrhagic cyst on PET/CT is not clearly seen on ultrasound. Technologist marked subcentimeter poorly defined lesion that is too small to further characterize. IMPRESSION: A 4.7 cm heterogeneous vascular hypoechoic lesion left hepatic lobe is nonhypermetabolic on PET CT making metastatic lesion almost certainly unlikely but primary solid liver lesion is in dif ferential, further investigation with multi phase contrast-enhanced liver protocol CT or MRI is advis ed to further evaluate and characterize.
== END ==
LOC: RADUSWWP 08:00
PROVIDERS: ATTEND Internal Medicine
DX: K76.9 Liver disease, unspecified (principal)
CPT/HCPCS: 76700

== ENCOUNTER 2017-05-10 08:36 | Day surgery (SDC) | payer MEDICARE, OTHER ==
[2017-05-10 09:20] LABS: Mean Platelet Volume 8.9
[2017-05-10 09:32] LABS: Prothrombin Time 10.1 sec (9.0-12.0)
[2017-05-10] MEDS ORDERED: ALPRAZolam 0.25 MG TAB PO STA (09:39)
[2017-05-10 09:41] VITALS: RESP 14; TEMP 97.8
[2017-05-10 10:38] VITALS: BP 147/66; PULSE 56
--- NOTE | 2017-05-10 10:55 | XR ---
EXAMINATION TYPE: XR chest 1V portable DATE OF EXAM: 05/10/2017 COMPARISON: 03/14/2017 HISTORY: Status post right thoracentesis. TECHNIQUE: Single frontal view of the chest is obtained. FINDINGS: The previously seen right basilar airspace disease has improved in the interim with minima l right basilar subsegmental atelectasis remaining. Copious soft tissues partially obscured the costo phrenic angles, however there is trace blunting of the right costophrenic angle. Dextroscoliotic curv ature of the thoracic spine with compensatory levoconvex scoliosis of the visualized thoracolumbar sp ine are noted. Cardia mediastinal silhouette is within normal limits. IMPRESSION: 1. Blunting of the right costophrenic angle may relate to trace residual pleural effusion or pleural reaction. No pneumothorax. 2. Minimal subsegmental right basilar atelectasis.
--- NOTE | 2017-05-10 11:14 | US ---
Ultrasound-guided therapeutic and diagnostic thoracentesis DATE OF EXAM: 05/10/2017 CLINICAL HISTORY: Right pleural effusion The procedure was discussed with the patient. The risks, complications, benefits, and alternatives we re discussed and any questions were answered. Informed consent was obtained. The patient was placed supine on the ultrasound table and prepped and draped in the usual sterile fas hion. All elements of maximal barrier and sterile technique were utilized. Under ultrasound guidance, access into the pleural space was obtained, via the thoracentesis catheter system and direct ultrasound guidance. Ap proximately 0.3 liters of serous fluid was removed. The patient was stable throughout the procedure and remained stable upon discharge from Department of Radiology. IMPRESSION: 1. Successful therapeutic and diagnostic thoracentesis under ultrasound guidance.
== END 2017-05-10 10:57 | disposition home or self-care (01) ==
LOC: RADPROMAIN 08:36
PROVIDERS: ATTEND Internal Medicine
DX: J90 Pleural effusion, not elsewhere classified (principal); J98.11 Atelectasis
CPT/HCPCS: 32555; 71010; 85049; 85610; 88108; 88305; 88341; 88342

== ENCOUNTER → 2017-12-20 | Outpatient (CLI) | payer MEDICARE, OTHER ==
--- NOTE | 2017-12-20 13:39 | CT ---
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 Coronal/sagittal reconstructions performed. CT DLP: 392.00mGycm. Automatic exposure control utilized for a dose reduction. FINDINGS: The heart is upper limits of normal in size without pericardial effusion. Mild to moderate atherosclerotic arch calcifications with conventional arch vessel branching anatomy. Scattered nonenlarged mediastinal lymph nodes. Previous left hilar lymph node shows no interval incre ase in size currently measuring 8 mm. No new thoracic lymphadenopathy. There is moderate to advanced centrilobular emphysema. Focal patchy density measures 1.1 cm posterior left upper lobe, not significantly changed. Focal patc hy consolidation measuring 1.7 cm in the peripheral left midlung has increased. Additional focal areas of consolidation lateral basilar right lower lobe is new measuring up to 4.2 x 2.9 cm. Previous masslike area in the right lower lobe along the major fissure persists but is somew hat less defined measuring 3.5 x 2.2 cm versus 3.7 x 2.7 cm, previously. Patchy opacity basilar lateral right middle lobe is new. A small right pleural effusion with some associated pleural thickening and possible loculation is new . The anterior margin of the effusion underlies a subacute healing right lateral seventh rib fracture . There is mild surrounding soft tissue thickening that could represent posttraumatic soft tissue thi ckening. Prominent 5.4 cm left hepatic cyst redemonstrated. Adjacent subcentimeter hypodensity anterior left l iver lobe unchanged, likely cyst. Cholelithiasis with a 8 mm gallstone. Similar diffuse thickening of the left adrenal gland. Bones: S-shaped scoliosis with associated degenerative changes. No osseous destructive process. IMPRESSION: 1. While the previous right basilar mass appears less confluent, there are new multifocal areas of co nsolidation particularly at the right base and increased in the peripheral left upper lobe. Continued follow-up recommended. Pneumonia versus posttreatment change versus disease progression are all in t he differential and clinical correlation is needed. 2. The previous left hilar lymph node is stable and small at 8 mm. 3. New loculated small right pleural effusion. There is a subacute healing right lateral seventh rib fracture and some surrounding soft tissue thickening, probably posttraumatic, inflammatory thickening . 4. COPD with moderate emphysema.
== END | disposition home or self-care (01) ==
LOC: RADCTMAIN 11:34
PROVIDERS: ATTEND Radiology Radiation Oncology
DX: C34.12 Malignant neoplasm of upper lobe, left bronchus or lung (principal); J90 Pleural effusion, not elsewhere classified; J44.0 Chronic obstructive pulmonary disease with (acute) lower respiratory infection; J43.9 Emphysema, unspecified
CPT/HCPCS: 82565; 84520; 71260; 36415; Q9967

== ENCOUNTER → 2018-04-21 | Outpatient (CLI) | payer MEDICARE, OTHER ==
--- NOTE | 2018-04-21 13:28 | CT ---
EXAMINATION TYPE: CT chest w con DATE OF EXAM: 04/21/2018 COMPARISON: 12/20/2017 and 08/21/2017. HISTORY: f/u lung ca CT DLP: 402.9 mGycm. Automated Exposure Control for Dose Reduction was Utilized. TECHNIQUE: CT scan of the thorax is performed following with IV Contrast, patient injected with 100 mL of Isovue 300. FINDINGS: LUNGS: There is moderate background centrilobular emphysema. There is a marked change in the previously identified 1.7 cm nodule in the left upper lobe as there i s now a large focal consolidation is masslike highly suspicious for neoplasm measuring proximally 4.0 x 5.1 cm with mass effect from the adjacent pulmonary arteries and bronchi and extension to the pleu ral surface. This measures approximately 3.7 cm in craniocaudal dimension. Surrounding pneumonitis wi th more linear groundglass opacity is seen at the periphery of this mass and within the superior segm ent of the left lower lobe. There is redemonstration of left hemithorax spine loss with leftward medi astinal shift. There is also progression of disease in the right lower lobe as there is confluence of the previously seen multiple right lower lobe nodules with the most prominent soft tissue density measured on soft tissue algorithm axial series 3 image 40 at approximately 4.2 x 3.7 cm, also contiguous with the pleu ral surface. This region previously measured approximately 2.9 x 2.6 cm. Again there is adjacent osse ous healing fracture soft tissue edema surrounding the right lateral and anterior chest wall musculat ure and subcutaneous tissues. The previously seen right lateral pleural effusion may have been reacti ve to the rib fracture and is no longer appreciated. More medial right lower lobe consolidation measures approximately 2.3 x 1.9 cm as opposed to approxim ately 1.0 cm on the prior. There is an approximately 1.0 cm left apical pulmonary nodule with adjacent groundglass opacity media lly on series 4 image 15 and 16. This is unchanged from the prior exams. MEDIASTINUM: Extensive atherosclerosis is noted of the thoracic aorta and upper abdominal aorta. Only mild coronary artery calcifications are seen however. There are no greater than 1 cm hilar or medias tinal lymph nodes. No pericardial effusion is seen. OTHER: Left hepatic cyst is again seen. Additional likely smaller cyst is also present. There is mild fundal wall thickening of the gallbladder. There is a small hiatal hernia present. Too small to accu rately characterize left upper pole renal lesion measures 6 mm and right upper pole renal lesion shaylee ures 4 mm. Again there is an issue scoliosis and associated degenerative changes of the thoracic spin e with no new suspicious osseous lesion. IMPRESSION: 1. Progression of pulmonary disease. Previously seen 1.7 cm left upper lobe pulmonary nodule now pres ent as a mass measuring 4.0 x 5.1 cm highly suspicious for metastasis/neoplasm. Additionally there is confluence of multiple right lower lobe nodules now measuring 4.0 x 3.7 cm (previously 2.9 x 2.6 cm) and medial nodule measuring 2.3 x 1.9 cm as opposed to 1.0 cm on the prior. 2. No new mediastinal adenopathy or suspicious findings in the visualized upper abdomen to suggest me tastasis. No new suspicious osseous lesions. Redemonstration of a healing right lateral rib fracture.
== END | disposition home or self-care (01) ==
LOC: RADCTMAIN 10:50
PROVIDERS: ATTEND Radiology Radiation Oncology
DX: C34.12 Malignant neoplasm of upper lobe, left bronchus or lung (principal); R91.8 Other nonspecific abnormal finding of lung field
CPT/HCPCS: 82565; 84520; 71260; 36415; Q9967

== ENCOUNTER → 2018-05-03 | Outpatient (CLI) | payer MEDICARE, OTHER ==
--- NOTE | 2018-05-03 15:12 | PE ---
EXAMINATION TYPE: PET CT fusion skull to thigh DATE OF EXAM: 05/03/2018 COMPARISON: Most recent chest CT April 21, 2018 and older studies. Prior PET/CT March 02, 2017 HISTORY: Bilateral lung cancer diagnosed December 2016 per patient completed radiation treatment Decem 2016. TECHNIQUE: Following the intravenous administration of 11.009 mCi of F-18 FDG, whole body images are performed from the skull base to the midthigh. Images are reviewed on the computer in the coronal, axial, and sagittal planes. Reconstructed rotating images are created on independent workstation and reviewed on the computer. A noncontrast CT is performed in conjunction with the PET scan. SCAN: Subsequent Scan FINDINGS: SKULL BASE AND NECK: No new areas of abnormal hypermetabolic uptake. CHEST, MEDIASTINUM, AND HILAR REGION: There is background of fairly moderate underlying emphysematous change redemonstrated. Correlating with recent x-ray there is masslike consolidation the left midlun g redemonstrated measuring roughly 4.4 x 4.6 cm axial image 89. There is less prominent but some abno rmal hypermetabolic uptake with max SUV of 5.09. Area of prior neoplasm hypermetabolic more central n odule is not clearly identified currently. There is additional masslike consolidation laterally in the right lung base measuring 5.4 x 4.0 cm ax ial image 118, there is acute or subacute adjacent right lateral seventh rib fracture axial image 120 . PET images show some increased hypermetabolic uptake particularly lateral aspect, max SUV 5.86. The re is also medial masslike consolidation with air bronchograms near this axial image 121 which shows mild hypermetabolic uptake, max SUV is 3.66. No additional areas of suspicious hypermetabolic uptake are seen. ABDOMEN AND PELVIS: No new areas of abnormal hypermetabolic uptake are noted. OSSEOUS STRUCTURES: No new suspicious areas of abnormal hypermetabolic uptake are seen. OTHER CT: S-shaped scoliosis is redemonstrated. There is mild to moderate calcified plaque at carotid bulb level, tortuous right side is noted. Mild cardiomegaly is felt present. Prominent but subcentimeter paratracheal, subcarinal, and AP windo w lymph nodes are redemonstrated without significant interval change. The ascending thoracic aorta at the level the main pulmonary artery is 3.5 cm Axial image 92. Large simple appearing cyst in the liver left hepatic lobe axial image 131 is present. Single gallsto ne in gallbladder axial image 146. . There is moderate calcified plaque throughout the visualized aorta. Diverticula are scattered throughout the colon most prominent in the left and sigmoid colon IMPRESSION: As above. Correlating with recent CT there are bilateral areas of enlarging masslike cons olidation with abnormal hypermetabolic uptake in which recurrent or progressive neoplasm cannot be ex cluded.
== END | disposition home or self-care (01) ==
LOC: RADPETMAIN 10:29
PROVIDERS: ATTEND Radiology Radiation Oncology
DX: C34.12 Malignant neoplasm of upper lobe, left bronchus or lung (principal); C34.31 Malignant neoplasm of lower lobe, right bronchus or lung; J43.9 Emphysema, unspecified; I65.21 Occlusion and stenosis of right carotid artery; I51.7 Cardiomegaly; K80.20 Calculus of gallbladder without cholecystitis without obstruction; I70.0 Atherosclerosis of aorta; K57.30 Diverticulosis of large intestine without perforation or abscess without bleeding; Z92.3 Personal history of irradiation
CPT/HCPCS: 78815; A9552

== ENCOUNTER 2018-06-25 20:03 | Emergency (ER) | payer MEDICARE, OTHER ==
[2018-06-25] MEDS ORDERED: MORPHINE SULFATE 4 MG/ML SYRINGE IV STA (20:58)
[2018-06-25] MEDS ORDERED: ONDANSETRON 4 MG/2 ML VIAL IVP STA (20:58)
[2018-06-25] MEDS ORDERED: SODIUM CHLORIDE 0.9% 500 ML IV STA (20:58)
--- NOTE | 2018-06-25 21:00 | ED ---
Abdominal Pain HPI - General Chief Complaint: Abdominal Pain Stated Complaint: Abdominal Pain, NVD Time Seen by Provider: 06/25/18 20:40 Source: EMS Mode of arrival: EMS Limitations: no limitations - History of Present Illness Initial Comments: 82-year-old female patient presents to the emergency department today for complaints of lower abdominal pain. Patient states that the pain is been present for the last several hours. States that she has been nauseated with this but has not vomited. Patient states that she has not had a bowel movement 2-3 days and thinks this may be contributing. She denies any fevers or but states she did have chills last evening. Denies any hematuria, dysuria, urinary frequency, urinary urgency. Denies any history of similar pain. Patient is currently receiving chemotherapy for lung cancer. Patient denies any recent rash, shortness breath, chest pain, back pain, numbness, tingling, dizziness, weakness, headache, visual changes, or any other complaints. - Related Data Home Medications Medication Instructions Recorded Confirmed Albuterol Sulfate [Proair Hfa] 2 puff INHALATION RT-QID PRN 03/29/16 06/25/18 Aspirin EC [Ecotrin Low Dose] 81 mg PO DAILY 03/29/16 06/25/18 Prasanna/D3/Mag11/Zinc/Make Up Artist/Reece/Bor 1 tab PO DAILY 03/29/16 06/25/18 [Caltrate 600+D Plus Tablet] Magnesium Oxide [Mag-Ox] 400 mg PO DAILY 03/29/16 06/25/18 Multivitamins, Thera [Multivitamin 1 tab PO DAILY 03/29/16 06/25/18 (formulary)] Carvedilol [Coreg] 6.25 mg PO DAILY 02/19/17 06/25/18 Cetirizine HCl [Zyrtec] 10 mg PO DAILY 02/19/17 06/25/18 Ipratropium-Albuterol Nebulize 3 ml INHALATION RT-BID 02/19/17 06/25/18 [Duoneb 0.5 mg-3 mg/3 ml Soln] Lisinopril [Zestril] 10 mg PO BID 02/19/17 06/25/18 Budesonide-Formot 160-4.5 Mcg 2 puff INHALATION RT-BID 03/08/17 06/25/18 [Symbicort 160-4.5 Mcg Inhaler] Montelukast [Singulair] 10 mg PO HS 06/25/18 06/25/18 Jonancy-3 Fatty Acids/Fish Oil [Fish 1 cap PO DAILY 06/25/18 06/25/18 Oil 1,000 mg Softgel] Previous Rx's Medication Instructions Recorded Nitrofurantoin Monohyd/M-Cryst 100 mg PO Q12HR #10 cap 06/26/18 [Macrobid] Polyethylene Glycol 3350 [Miralax] 17 gm PO DAILY #15 packet 06/26/18 Allergies Allergy/AdvReac Type Severity Reaction Status Date / Time amoxicillin Allergy Nausea & Verified 06/25/18 20:35 Vomiting celecoxib [From Celebrex] Allergy Rash/Hives Verified 06/25/18 20:35 codeine Allergy Nausea & Verified 06/25/18 20:35 Vomiting antibiotics AdvReac Severe Vomiting Uncoded 06/25/18 20:18 Review of Systems ROS Statement: Those systems with pertinent positive or pertinent negative responses have been documented in the HPI. ROS Other: All systems not noted in ROS Statement are negative. Past Medical History Past Medical History: COPD, Hypertension, Myocardial Infarction (ME), Osteoarthritis (OA), Pneumonia Additional Past Medical History / Comment(s): COPD and lung mass (RLL) , previous pneumonia x2 once was bacterial, hemorrhoids, diverticulosis/ diverticulitis, thyroid nodules, scoliosis, oxygen-2L, gallstone, hx ulcers, urinary leakage, stage IV lung cancer Last Myocardial Infarction Date:: unknown History of Any Multi-Drug Resistant Organisms: None Reported Past Surgical History: Breast Surgery, Joint Replacement Additional Past Surgical History / Comment(s): total rt knee arthroplasty, bilateral cataract removal,laser sx for glaucoma bilaterally, D&C, rt breast biopsy/lumpectomy, Past Anesthesia/Blood Transfusion Reactions: Motion Sickness Additional Past Anesthesia/Blood Transfusion Reaction / Comment(s): "Does not take much anesthesia" hard time waking up, Past Psychological History: No Psychological Hx Reported Smoking Status: Former smoker Past Alcohol Use History: Rare Past Drug Use History: None Reported - Past Family History Father History Unknown: Yes Additional Family Medical History / Comment(s): Father when pt was 3 yrs old in a MVA. Mother Family Medical History: Deep Vein Thrombosis (DVT) Additional Family Medical History / Comment(s): Mother had severe phlebitis. She when pt was 16 yrs. old from kidney failure. Daughter(s) Family Medical History: Cancer Additional Family Medical History / Comment(s): melanoma General Exam Limitations: no limitations General appearance: alert, in no apparent distress, other (Physical well- developed, obese adult female patient in no acute distress. Vital signs upon presentation are temperature 99.2F, pulse 89, respirations 20, blood pressure 194/84, pulse ox 93% on room air.) Eye exam: Present: normal appearance, PERRL, EOMI. Absent: scleral icterus, conjunctival injection, periorbital swelling ENT exam: Present: normal exam, normal oropharynx, mucous membranes moist Respiratory exam: Present: normal lung sounds bilaterally. Absent: respiratory distress, wheezes, rales, rhonchi, stridor Cardiovascular Exam: Present: regular rate, normal rhythm, normal heart sounds. Absent: systolic murmur, diastolic murmur, rubs, gallop, clicks GI/Abdominal exam: Present: soft, tenderness (generalized, mild), normal bowel sounds. Absent: distended, guarding, rebound, rigid Neurological exam: Present: alert, oriented X3, CN II-XII intact Psychiatric exam: Present: normal affect, normal mood Skin exam: Present: warm, dry, intact, normal color. Absent: rash Course Vital Signs 06/25/18 06/26/18 20:18 01:29 Temperature 99.0 F 97.1 F L Pulse Rate 89 64 Respiratory 20 18 Rate Blood Pressure 194/84 148/66 O2 Sat by Pulse 93 L 97 Oximetry Medical Decision Making - Medical Decision Making 82-year-old female patient presented to the emergency department today for evaluation of lower abdominal pain. Patient is reporting constipation. She did have some nausea but no vomiting. Physical examination did reveal some mild lower abdominal tenderness. Labs reviewed and are unremarkable. White blood cell count was normal. Lactic acid negative. Urinalysis did show positive nitrite with small amount of bacteria. CT abdomen and pelvis was obtained and did show constipation and dilated bowel related to this. Patient was given milk and molasses enema here in the emergency department. She did have a small bowel movement but does report improvement of her symptoms. She' ll be discharged home with a prescription for MiraLAX as well as Macrobid for urinary tract infection. Urine was cultured. She is instructed to follow-up with her primary care physician for recheck in 1-2 days. Return parameters discussed in detail. She verbalizes understanding and agrees with this plan. - Lab Data Result diagrams: 06/25/18 21:37 06/25/18 21:37 Lab Results 06/25/18 06/25/18 06/25/18 Range/Units 21:03 21:37 21:37 WBC 8.4 (3.8-10.6) k/uL RBC 3.25 L (3.80-5.40) m/uL Hgb 10.9 L (11.4-16.0) gm/dL Hct 32.1 L (34.0-46.0) % MCV 98.6 (80.0-100.0) fL MCH 33.5 (25.0-35.0) pg MCHC 33.9 (31.0-37.0) g/dL RDW 13.2 (11.5-15.5) % Plt Count 186 (150-450) k/uL Neutrophils % 88 % Lymphocytes % 7 % Monocytes % 4 % Eosinophils % 0 % Basophils % 0 % Neutrophils # 7.4 (1.3-7.7) k/uL Lymphocytes # 0.6 L (1.0-4.8) k/uL Monocytes # 0.3 (0-1.0) k/uL Eosinophils # 0.0 (0-0.7) k/uL Basophils # 0.0 (0-0.2) k/uL Sodium 138 (137-145) mmol/L Potassium 3.9 (3.5-5.1) mmol/L Chloride 102 (98-107) mmol/L Carbon Dioxide 32 H (22-30) mmol/L Anion Gap 4 mmol/L BUN 18 H (7-17) mg/dL Creatinine 0.76 (0.52-1.04) mg/dL Est GFR (CKD-EPI)AfAm 86 (>60 ml/min/1.73 sqM) Est GFR (CKD-EPI)NonAf 74 (>60 ml/min/1.73 sqM) Glucose 118 H (74-99) mg/dL Plasma Lactic Acid Cristhian (0.7-2.0) mmol/L Calcium 8.9 (8.4-10.2) mg/dL Total Bilirubin 0.6 (0.2-1.3) mg/dL AST 26 (14-36) U/L ALT 36 (9-52) U/L Alkaline Phosphatase 76 (38-126) U/L Total Protein 5.6 L (6.3-8.2) g/dL Albumin 3.2 L (3.5-5.0) g/dL Amylase 68 (30-110) U/L Lipase 46 (23-300) U/L Urine Color Light Yellow Urine Appearance Cloudy H (Clear) Urine pH 8.0 (5.0-8.0) Ur Specific [place] 1.008 (1.001-1.035) Urine Protein Negative (Negative) Urine Glucose (UA) Negative (Negative) Urine Ketones Negative (Negative) Urine Blood Negative (Negative) Urine Nitrite Positive H (Negative) Urine Bilirubin Negative (Negative) Urine Urobilinogen <2.0 (<2.0) mg/dL Ur Leukocyte Esterase Negative (Negative) Urine RBC <1 (0-5) /hpf Urine WBC 1 (0-5) /hpf Ur Squamous Epith Cells 1 (0-4) /hpf Urine Bacteria Rare H (None) /hpf 06/25/18 Range/Units 21:37 WBC (3.8-10.6) k/uL RBC (3.80-5.40) m/uL Hgb (11.4-16.0) gm/dL Hct (34.0-46.0) % MCV (80.0-100.0) fL MCH (25.0-35.0) pg MCHC (31.0-37.0) g/dL RDW (11.5-15.5) % Plt Count (150-450) k/uL Neutrophils % % Lymphocytes % % Monocytes % % Eosinophils % % Basophils % % Neutrophils # (1.3-7.7) k/uL Lymphocytes # (1.0-4.8) k/uL Monocytes # (0-1.0) k/uL Eosinophils # (0-0.7) k/uL Basophils # (0-0.2) k/uL Sodium (137-145) mmol/L Potassium (3.5-5.1) mmol/L Chloride (98-107) mmol/L Carbon Dioxide (22-30) mmol/L Anion Gap mmol/L BUN (7-17) mg/dL Creatinine (0.52-1.04) mg/dL Est GFR (CKD-EPI)AfAm (>60 ml/min/1.73 sqM) Est GFR (CKD-EPI)NonAf (>60 ml/min/1.73 sqM) Glucose (74-99) mg/dL Plasma Lactic Acid Cristhian 0.9 (0.7-2.0) mmol/L Calcium (8.4-10.2) mg/dL Total Bilirubin (0.2-1.3) mg/dL AST (14-36) U/L ALT (9-52) U/L Alkaline Phosphatase (38-126) U/L Total Protein (6.3-8.2) g/dL Albumin (3.5-5.0) g/dL Amylase (30-110) U/L Lipase (23-300) U/L Urine Color Urine Appearance (Clear) Urine pH (5.0-8.0) Ur Specific [place] (1.001-1.035) Urine Protein (Negative) Urine Glucose (UA) (Negative) Urine Ketones (Negative) Urine Blood (Negative) Urine Nitrite (Negative) Urine Bilirubin (Negative) Urine Urobilinogen (<2.0) mg/dL Ur Leukocyte Esterase (Negative) Urine RBC (0-5) /hpf Urine WBC (0-5) /hpf Ur Squamous Epith Cells (0-4) /hpf Urine Bacteria (None) /hpf - Radiology Data Radiology results: report reviewed, image reviewed CT abdomen and pelvis was obtained with contrast. Report was reviewed in its entirety. Impression by Dr. Nicholson shows infiltrate and volume loss in the right lower lobe consistent with lung cancer that is similar to last scan. There is constipation with increased fecal material in the right colon compared to last exam. Gallstones. Atherosclerotic vascular disease. Moderate colonic diverticulosis without diverticulitis. Disposition Clinical Impression: Abdominal pain, Urinary tract infection Disposition: HOME SELF-CARE Condition: Good Instructions: Urinary Tract Infection in Women (ED), Abdominal Pain (ED) Additional Instructions: Increase fluids. Take medication as directed. Follow-up with her primary care physician for recheck in 1-2 days. Return here immediately for any new, worsening, or concerning symptoms. Prescriptions: Nitrofurantoin Monohyd/M-Cryst [Macrobid] 100 mg PO Q12HR #10 cap Polyethylene Glycol 3350 [Miralax] 17 gm PO DAILY #15 packet Is patient prescribed a controlled substance at d/c from ED?: No Referrals: Myra Arreaga MD [Primary Care Provider] - 1-2 days Time of Disposition: 01:59
[2018-06-25 21:16] LABS: Appearance,Urine Cloudy (Clear); Bacteria,Urine Rare /hpf; Bilirubin,Urine Negative (Negative); Blood,Urine Negative (Negative); Color,Urine Light Yellow; Glucose,Urine (UA) Negative (Negative); Ketones,Urine Negative (Negative); Leukocyte Esterase,Urine Negative (Negative); Nitrite,Urine Positive (Negative); Protein,Urine Negative (Negative); RBC,Urine <1 /hpf (0-5); Specific Gravity,Urine 1.008 (1.001-1.035); Squamous Epithelial Cell,Urine 1 /hpf (0-4); Urobilinogen,Urine <2.0 mg/dL (<2.0); WBC,Urine 1 /hpf (0-5)
[2018-06-25 22:05] LABS: Albumin 3.2 g/dL (3.5-5.0); Calcium 8.9 mg/dL (8.4-10.2); Potassium 3.9 mmol/L (3.5-5.1); Total Bilirubin 0.6 mg/dL (0.2-1.3); Total Protein 5.6 g/dL (6.3-8.2)
[2018-06-25 22:20] LABS: Basophils % (A) 0 %; Eosinophils % (A) 0 %; HCT 32.1 % (34.0-46.0); HGB 10.9 gm/dL (11.4-16.0); Lymphocytes # (A) 0.6 k/uL (1.0-4.8); Lymphocytes % (A) 7 %; MCH 33.5 pg (25.0-35.0); MCHC 33.9 g/dL (31.0-37.0); MCV 98.6 fL (80.0-100.0); Mean Platelet Volume 6.4; Monocytes # (A) 0.3 k/uL (0-1.0); Monocytes % (A) 4 %; Neutrophils # (A) 7.4 k/uL (1.3-7.7); Neutrophils % (A) 88 %; Platelet Count 186 k/uL (150-450); RBC 3.25 m/uL (3.80-5.40); RDW 13.2 % (11.5-15.5); WBC 8.4 k/uL (3.8-10.6)
--- NOTE | 2018-06-25 23:08 | CT ---
EXAMINATION TYPE: CT abdomen pelvis w con DATE OF EXAM: 06/25/2018 COMPARISON: PET/CT scan 05/03/2018 HISTORY: Abdominal pain, nausea, vomiting and constipation. CT DLP: 1305.7 mGycm Automated exposure control for dose reduction was used. TECHNIQUE: Helical acquisition of images was performed from the lung bases through the pelvis. CONTRAST: Performed without Oral Contrast and with IV Contrast, patient injected with 100ml mL of Isovue 300. FINDINGS: There is some spiculated infiltrate at the right lung base that measures overall 8 x 4 cm. There is 5 .5 cm cyst in the left lobe of the liver. There is one senators cyst left lobe of the liver. Bile ronald ts are not dilated. Gallbladder shows calcified gallstones at the gallbladder neck. There is no gallb ladder wall thickening. Spleen appears normal. There is no evidence of pancreatic mass. There is no a drenal mass. There are small cortical cysts in both kidneys that measure less than 1 cm. There is no hydronephrosi s. There is no retroperitoneal adenopathy. There is no mesenteric adenopathy. There is dilated transv erse colon and right colon with fecal material. Right colon measures 7 cm. Bladder distends smoothly. There is no free fluid in the pelvis. There are multiple diverticula in th e sigmoid colon. There is no sign of diverticulitis. There is no mesenteric edema or adenopathy. Ther e is no sign of free air. Abdominal aorta is atheromatous. There is no aneurysm. There are spondyloti c changes in the lumbar spine. There is disc space narrowing. There is no compression fracture. I see no focal bone destruction. There is no inguinal hernia or adenopathy. IMPRESSION: THERE IS INFILTRATE AND VOLUME LOSS IN THE RIGHT LOWER LOBE CONSISTENT WITH LUNG CANCER THAT IS SIMIL AR TO LAST CT SCAN. THERE IS CONSTIPATION WITH INCREASED FECAL MATERIAL IN THE RIGHT COLON COMPARED TO LAST EXAM. GALLSTONES. ATHEROSCLEROTIC VASCULAR DISEASE. MODERATE COLONIC DIVERTICULOSIS WITHOUT DIVERTICULITIS.
[2018-06-26 02:33] VITALS: BP 153/68; PULSE 77; RESP 20; TEMP 97
== END 2018-06-26 02:30 | disposition home or self-care (01) ==
LOC: EC 20:03
DX: N39.0 Urinary tract infection, site not specified (principal); K59.00 Constipation, unspecified; J44.9 Chronic obstructive pulmonary disease, unspecified; I10 Essential (primary) hypertension; I25.2 Old myocardial infarction; M19.90 Unspecified osteoarthritis, unspecified site; Z87.19 Personal history of other diseases of the digestive system; Z85.118 Personal history of other malignant neoplasm of bronchus and lung; Z96.651 Presence of right artificial knee joint; Z87.891 Personal history of nicotine dependence; Z79.82 Long term (current) use of aspirin; Z79.51 Long term (current) use of inhaled steroids; Z79.899 Other long term (current) drug therapy; Z88.0 Allergy status to penicillin; Z88.6 Allergy status to analgesic agent; Z88.5 Allergy status to narcotic agent; Z88.1 Allergy status to other antibiotic agents
CPT/HCPCS: 36415; 80053; 82150; 83605; 83690; 85025; 81001; 87040; 87086; 74177; 99285; 96374; 96375; 96361 ×5; J2270; J2405; Q9967